=== PATIENT | male | born 1980 | race Caucasian/White ===

== ENCOUNTER 2019-09-10 10:39 | Emergency (ER) | payer MEDICAID, OTHER, SELFPAY ==
[~2019-09-10] VITALS: Ht 180.3 cm; Wt 99.1 kg
[2019-09-10 11:20] VITALS: BP 155/101
== END 2019-09-10 14:53 | disposition home or self-care (01) ==
LOC: ED 14:45
DX: M54.42 Lumbago with sciatica, left side (principal); M79.662 Pain in left lower leg; I10 Essential (primary) hypertension
CPT/HCPCS: 72110; 99284

== ENCOUNTER 2020-07-11 04:11 | Emergency (ER) | payer SELFPAY ==
[~2020-07-11] VITALS: Ht 180.3 cm; Wt 100.9 kg
[2020-07-11] MEDS ORDERED: KETOROLAC 30 MG/1 ML ONE (04:56)
[2020-07-11] MEDS ORDERED: METHOCARBAMOL 750 MG TABLET ONE (04:56)
[2020-07-11] MEDS ORDERED: METHOCARBAMOL 750 MG TABLET PO ONE (05:00)
[2020-07-11] MEDS ORDERED: KETOROLAC 30 MG/1 ML IM ONE (05:00)
[2020-07-11 05:01] VITALS: BP 169/109
--- NOTE | 2020-07-11 05:02 | NUR ---
PT MEDICATED PER MAR TOLERATED WELL NADN AT THIS TIME
--- NOTE | 2020-07-11 06:45 | NUR ---
Patient/Caregiver given discharge instructions and they have confirmed that they understand the instructions. Patient ambulatory with steady gait.
== END 2020-07-11 06:47 | disposition home or self-care (01) ==
LOC: ED 06:22
DX: S39.012A Strain of muscle, fascia and tendon of lower back, initial encounter (principal); F17.290 Nicotine dependence, other tobacco product, uncomplicated; I10 Essential (primary) hypertension; X58.XXXA Exposure to other specified factors, initial encounter; Y93.89 Activity, other specified; Y92.89 Other specified places as the place of occurrence of the external cause; Y99.8 Other external cause status
CPT/HCPCS: 72072; 96372; 99283; J1885

== ENCOUNTER 2020-08-04 12:28 | Emergency (ER) | payer SELFPAY ==
[~2020-08-04] VITALS: Ht 180.3 cm; Wt 101.5 kg
[2020-08-04 12:33] VITALS: BP 153/97
== END 2020-08-04 14:14 | disposition home or self-care (01) ==
LOC: ED 13:41
DX: J02.9 Acute pharyngitis, unspecified (principal); R05 Cough; R50.9 Fever, unspecified; Z20.828 Contact with and (suspected) exposure to other viral communicable diseases; I10 Essential (primary) hypertension; M79.10 Myalgia, unspecified site
CPT/HCPCS: 87635; 99283

== ENCOUNTER → 2021-01-01 | Outpatient (CLI) | payer MEDICAID | END | disposition home or self-care (01) | LOC: WOUND 13:22 | PROVIDERS: ATTEND Internal Medicine | DX: T87.89 Other complications of amputation stump (principal); T34.822A Frostbite with tissue necrosis of left foot, initial encounter; T34.821A Frostbite with tissue necrosis of right foot, initial encounter; I10 Essential (primary) hypertension; G62.9 Polyneuropathy, unspecified; F41.9 Anxiety disorder, unspecified; F31.31 Bipolar disorder, current episode depressed, mild; F32.9 Major depressive disorder, single episode, unspecified; F31.9 Bipolar disorder, unspecified; Z89.411 Acquired absence of right great toe; Z89.421 Acquired absence of other right toe(s); Z89.412 Acquired absence of left great toe; Z89.422 Acquired absence of other left toe(s); Y83.5 Amputation of limb(s) as the cause of abnormal reaction of the patient, or of later complication, without mention of misadventure at the time of the procedure; Y92.238 Other place in hospital as the place of occurrence of the external cause; X58.XXXA Exposure to other specified factors, initial encounter; Y93.89 Activity, other specified; Y92.89 Other specified places as the place of occurrence of the external cause; Y99.8 Other external cause status | CPT/HCPCS: 97597; 99214 ==

== ENCOUNTER 2021-01-08 12:37 | Outpatient (CLI) | payer MEDICAID | END 2021-01-08 23:59 | disposition home or self-care (01) | LOC: WOUND 12:37 | PROVIDERS: ATTEND Internal Medicine | DX: T87.89 Other complications of amputation stump (principal); T34.822D Frostbite with tissue necrosis of left foot, subsequent encounter; T34.821 Frostbite with tissue necrosis of right foot; L03.115 Cellulitis of right lower limb; L03.116 Cellulitis of left lower limb; I10 Essential (primary) hypertension; G62.9 Polyneuropathy, unspecified; F41.9 Anxiety disorder, unspecified; L84 Corns and callosities; F31.31 Bipolar disorder, current episode depressed, mild; Z89.411 Acquired absence of right great toe; Z89.412 Acquired absence of left great toe; Z89.421 Acquired absence of other right toe(s); Z89.422 Acquired absence of other left toe(s); Y83.8 Other surgical procedures as the cause of abnormal reaction of the patient, or of later complication, without mention of misadventure at the time of the procedure; X58.XXXD Exposure to other specified factors, subsequent encounter | CPT/HCPCS: 97597 ==

== ENCOUNTER 2021-01-15 12:39 | Outpatient (CLI) | payer MEDICAID | END 2021-01-15 23:59 | disposition home or self-care (01) | LOC: WOUND 12:39 | PROVIDERS: ATTEND Internal Medicine | DX: T87.89 Other complications of amputation stump (principal); T34.822D Frostbite with tissue necrosis of left foot, subsequent encounter; T34.821 Frostbite with tissue necrosis of right foot; L03.116 Cellulitis of left lower limb; L03.115 Cellulitis of right lower limb; I10 Essential (primary) hypertension; G62.9 Polyneuropathy, unspecified; F10.20 Alcohol dependence, uncomplicated; F41.9 Anxiety disorder, unspecified; F31.31 Bipolar disorder, current episode depressed, mild; L84 Corns and callosities; Z79.899 Other long term (current) drug therapy; Y83.5 Amputation of limb(s) as the cause of abnormal reaction of the patient, or of later complication, without mention of misadventure at the time of the procedure; X31.XXXD Exposure to excessive natural cold, subsequent encounter | CPT/HCPCS: 97597 ==

== ENCOUNTER → 2021-01-22 | Outpatient (CLI) | payer MEDICAID | END | disposition home or self-care (01) | LOC: WOUND 09:26 | PROVIDERS: ATTEND Internal Medicine | DX: T87.89 Other complications of amputation stump (principal); T34.822D Frostbite with tissue necrosis of left foot, subsequent encounter; T34.821 Frostbite with tissue necrosis of right foot; L03.115 Cellulitis of right lower limb; L03.116 Cellulitis of left lower limb; I10 Essential (primary) hypertension; G62.9 Polyneuropathy, unspecified; F41.9 Anxiety disorder, unspecified; L84 Corns and callosities; F31.31 Bipolar disorder, current episode depressed, mild; Z89.411 Acquired absence of right great toe; Z89.412 Acquired absence of left great toe; Z89.421 Acquired absence of other right toe(s); Z89.422 Acquired absence of other left toe(s); Y83.5 Amputation of limb(s) as the cause of abnormal reaction of the patient, or of later complication, without mention of misadventure at the time of the procedure; X58.XXXD Exposure to other specified factors, subsequent encounter | CPT/HCPCS: 97597 ==

== ENCOUNTER → 2021-01-29 | Outpatient (CLI) | payer MEDICAID | END | disposition home or self-care (01) | LOC: WOUND 08:31 | PROVIDERS: ATTEND Internal Medicine | DX: T87.89 Other complications of amputation stump (principal); T34.822D Frostbite with tissue necrosis of left foot, subsequent encounter; T34.821 Frostbite with tissue necrosis of right foot; L03.116 Cellulitis of left lower limb; L03.115 Cellulitis of right lower limb; I10 Essential (primary) hypertension; G62.9 Polyneuropathy, unspecified; F10.20 Alcohol dependence, uncomplicated; F41.9 Anxiety disorder, unspecified; F31.31 Bipolar disorder, current episode depressed, mild; Z79.899 Other long term (current) drug therapy; Y83.5 Amputation of limb(s) as the cause of abnormal reaction of the patient, or of later complication, without mention of misadventure at the time of the procedure; X31.XXXD Exposure to excessive natural cold, subsequent encounter | CPT/HCPCS: 97597 ==

== ENCOUNTER → 2021-02-05 | Outpatient (CLI) | payer MEDICAID | END | disposition home or self-care (01) | LOC: WOUND 08:35 | PROVIDERS: ATTEND Internal Medicine | DX: T34.822D Frostbite with tissue necrosis of left foot, subsequent encounter (principal); T34.821 Frostbite with tissue necrosis of right foot; L03.116 Cellulitis of left lower limb; L03.115 Cellulitis of right lower limb; I10 Essential (primary) hypertension; G62.9 Polyneuropathy, unspecified; F10.20 Alcohol dependence, uncomplicated; F41.9 Anxiety disorder, unspecified; F31.31 Bipolar disorder, current episode depressed, mild; Z79.899 Other long term (current) drug therapy; Z89.422 Acquired absence of other left toe(s); Z89.421 Acquired absence of other right toe(s); Z89.412 Acquired absence of left great toe; Z89.411 Acquired absence of right great toe; L84 Corns and callosities; X31.XXXD Exposure to excessive natural cold, subsequent encounter | CPT/HCPCS: 99214 ==

== ENCOUNTER 2021-05-07 09:15 | Outpatient (CLI) | payer MEDICAID | END 2021-05-07 23:59 | disposition home or self-care (01) | LOC: WOUND 09:15 | PROVIDERS: ATTEND Internal Medicine | DX: T87.89 Other complications of amputation stump (principal); L89.891 Pressure ulcer of other site, stage 1; S91.301A Unspecified open wound, right foot, initial encounter; I10 Essential (primary) hypertension; G62.9 Polyneuropathy, unspecified; F10.20 Alcohol dependence, uncomplicated; L84 Corns and callosities; F41.9 Anxiety disorder, unspecified; F31.31 Bipolar disorder, current episode depressed, mild; F17.210 Nicotine dependence, cigarettes, uncomplicated; Z79.899 Other long term (current) drug therapy; X58.XXXA Exposure to other specified factors, initial encounter; Y93.89 Activity, other specified; Y92.89 Other specified places as the place of occurrence of the external cause; Y99.8 Other external cause status; Y83.5 Amputation of limb(s) as the cause of abnormal reaction of the patient, or of later complication, without mention of misadventure at the time of the procedure | CPT/HCPCS: 99215 ==

== ENCOUNTER 2021-05-14 09:57 | Outpatient (CLI) | payer MEDICAID | END 2021-05-14 23:59 | disposition home or self-care (01) | LOC: WOUND 09:57 | PROVIDERS: ATTEND Internal Medicine | DX: L89.891 Pressure ulcer of other site, stage 1 (principal); I10 Essential (primary) hypertension; G62.9 Polyneuropathy, unspecified; F31.9 Bipolar disorder, unspecified; F17.290 Nicotine dependence, other tobacco product, uncomplicated; F41.9 Anxiety disorder, unspecified; Z89.422 Acquired absence of other left toe(s); Z89.421 Acquired absence of other right toe(s) | CPT/HCPCS: 99214 ==